=== PATIENT | female | born 1995 | race American Indian/Alaskan Native ===

== ENCOUNTER 2020-09-27 15:46 | Outpatient (CLI) | payer OTHER, SELFPAY ==
--- NOTE | ~2020-09-27 | CT_ITS ---
EXAMINATION: CT abdomen pelvis w con DATE: 09/27/2020 17:01 INDICATION: Right lower quadrant abdominal pain. TECHNIQUE: Computed tomography (CT) of the abdomen and pelvis was performed with 100 mL Omnipaque 350 intravenous contrast. Automated exposure control and iterative reconstruction technique were employe d. The dose-length product was 780.42 mGy-cm. COMPARISON: None. FINDINGS: The visualized portions of the lung bases are clear without pneumonia or pleural effusion. The heart size is normal. No pericardial effusion. The liver, gallbladder, spleen, pancreas, adrenal glands, and left kidney are normal. There is a 12 mm cyst in right kidney. There are no dilated loops of bowel. The appendix is normal. There is a small sliding hiatal hernia. There are no pathologicall y enlarged lymph nodes. There is no free intraperitoneal fluid. There is a 3.0 cm follicle in right o vary. There are no pathologically enlarged lymph nodes. There is no free intraperitoneal fluid. L4 is a limbus vertebra. IMPRESSION: 1. No specific etiology for the patient's symptoms. Reviewed, dictated and finalized at location A.
[2020-09-27 16:42] LABS: Basophils Percent Auto 0.3 % (0.2-1.2); Eosinophils Absolute Auto 0.1 K/mm3 (0-0.3); Eosinophils Percent Auto 1.2 % (0-4.4); Hematocrit 40.9 % (37.0-47.0); Hemoglobin 13.8 g/dL (12.0-15.0); Immature Granulocyte Absolute 0.09 K/mm3 (0.00-0.031); Immature Granulocyte Percent A 0.9 % (0-0.5); Lymphocytes Absolute Auto 2.15 K/mm3 (0.9-3.2); Lymphocytes Percent Auto 22.4 % (18.3-44.2); Mean Corpuscular HGB Conc 33.7 g/dl (32-36); Mean Corpuscular Hemoglobin 29.3 pg (26-34); Mean Corpuscular Volume 86.8 fl (80-100); Mean Platelet Volume 9.2 fl (7.4-10.4); Monocytes Absolute Auto 0.7 K/mm3 (0.1-0.6); Monocytes Percent Auto 6.8 % (2.6-8.5); Neutrophils Absolute Auto 6.6 K/mm3 (1.3-6.7); Neutrophils Percent Auto 68.4 % (45.5-73.1); Platelet Count Result 290 k/mm3 (150-375); Red Blood Count 4.71 M/mm3 (4.2-5.4); Red Cell Distribution Width 12.5 % (11.5-14.5); White Blood Count 9.6 K/mm3 (4.5-10.0)
[2020-09-27 16:43] LABS: Add Urine Microscopic? NO; Appearance Urine Clear (Clear); Bilirubin Urine Negative (Negative); Blood Urine Negative (Negative); Color Urine Straw (Yellow); Glucose Urine UA Negative (Negative); Ketones Urine Negative (Negative); Leukocyte Esterase Ur Negative LEU/UL (NEGATIVE); Nitrate Urine Negative (Negative); Protein Urine Negative (Negative); Urobilinogen Urine Negative mg/dL (<2.0)
[2020-09-27 16:51] LABS: Alanine Aminotransferase 16 U/L (4-35); Albumin Level 4.6 g/dL (3.5-5.1); Alkaline Phosphatase 91 U/L (38-126); Anion Gap 9 mmol/L (8-16); Aspartate Amino Transferase 27 U/L (14-36); Bilirubin,Total 0.2 mg/dL (0.2-1.3); Blood Urea Nitrogen 16 mg/dL (7-17); Calcium 9.5 mg/dL (8.4-10.2); Carbon Dioxide 25 mmol/L (22-30); Chloride 104 mmol/L (98-107); Estimated Glomerular Filt Rate > 60; Glucose 85 mg/dL (65-105); Potassium 4.1 mmol/L (3.4-5.0); Sodium 138 mmol/L (137-145)
== END 2020-09-27 15:47 | disposition home or self-care (01) ==
LOC: ANHIMG 15:48
PROVIDERS: PCP Physician Assistant; Visit Provider Physician Assistant
DX: R10.31 Right lower quadrant pain (principal)
CPT/HCPCS: 36415; 74177; 80053; 81003; 85025; 87086; Q9967

== ENCOUNTER → 2022-04-16 15:10 | Outpatient (CLI) | payer OTHER, SELFPAY ==
--- NOTE | ~2022-04-16 | CT_ITS ---
EXAMINATION: CT abdomen pelvis w con DATE: 04/16/2022 15:40 INDICATION: Right lower quadrant abdominal pain. Left lower quadrant abdominal pain. Blood in stool. TECHNIQUE: Computed tomography (CT) of the abdomen and pelvis was performed with 100 CC Omnipaque 350 intravenous contrast. Automated exposure control and iterative reconstruction technique were employe d. Exam dose: 1073.57 mGy-cm total exam DLP. COMPARISON: 09/27/2020 CT abdomen pelvis FINDINGS: The lung bases are clear. Normal heart size. No pericardial or pleural effusion. Small sliding hiatal hernia. The liver, gallbladder, bile ducts, spleen, pancreas, pancreatic duct, and adrenal glands are unremar kable. Lower pole right renal 1.4 cm cyst. The kidneys are otherwise unremarkable. No urinary tract calculus or hydroureteronephrosis. Normal caliber of the abdominal aorta. No intraperitoneal or retroperitoneal or pelvic mass lesion or adenopathy or ascites. 2 x 3 cm posterior right adnexal cyst, unchanged since 09/27/2020. 12 mm right ovarian cyst and peripherally enhancing 10 mm right ovarian cyst The uterus, ovaries and urinary bladder otherwise appear normal. Minimal sigmoid colon diverticulosis without evidence of diverticulitis. No bowel obstruction, bowel wall thickening, pneumatosis or intraperitoneal free air. Normal appendix. Small fat-containing umbilical hernia. L4 limbus vertebra, chronic. No suspicious osteolytic or osteoblastic lesions. IMPRESSION: Small sliding hiatal hernia 1.4 cm right renal cyst Chronic 2 x 3 cm posterior right adnexal cyst, stable since 09/27/2020 Right ovarian cysts Minimal sigmoid diverticulosis Reviewed, dictated and finalized at Location A. Reviewed, dictated and finalized at location B. [employer]
== END ==
PROVIDERS: PCP Physician Assistant; Visit Provider Physician Assistant
DX: R10.31 Right lower quadrant pain (principal); K44.9 Diaphragmatic hernia without obstruction or gangrene; N28.1 Cyst of kidney, acquired; N83.201 Unspecified ovarian cyst, right side
CPT/HCPCS: 74177; Q9967

== ENCOUNTER 2023-04-27 10:19 | Outpatient (CLI) | payer OTHER, SELFPAY ==
--- NOTE | ~2023-04-27 | US_ITS ---
EXAMINATION: US transvaginal DATE: 04/27/2023 10:54 INDICATION: Pelvic pain Comparison:Ultrasound dated 05/29/2017 TECHNIQUE: Multiple transabdominal and endovaginal sonographic images of the pelvis performed. FINDINGS: The uterus measures 7.3 x 4 x 3.4 cm. The endometrial complex measures 6 mm. The right ovary measures 2.1 x 1.7 x 2.1 cm and the left ovary measures 2.8 x 2.2 x 2.1 cm. There is a right ovarian cyst measuring 1.9 cm. There are small follicles in each ovary. Normal doppler signal in both ovaries. There is no free fluid in the pelvis. There are no abnormal masses seen on either side. IMPRESSION: 1. Right ovarian cyst measuring 1.9 cm. Reviewed, dictated and finalized at location A. [facility]
== END 2023-04-27 10:20 ==
PROVIDERS: PCP Nurse Practitioner; Visit Provider Nurse Practitioner
DX: R10.2 Pelvic and perineal pain (principal); N83.201 Unspecified ovarian cyst, right side
CPT/HCPCS: 76830

== ENCOUNTER 2023-06-15 09:23 | Outpatient (CLI) | payer OTHER, SELFPAY ==
--- NOTE | ~2023-06-15 | US_ITS ---
Pelvic ultrasound. Clinical History: Right ovarian cyst Technique: Realtime transvaginal scanning of the pelvis was performed. Color flow Doppler and Doppler spectral analysis were performed. Findings: The uterus is anteverted, and measures 7.3 x 3.9 x 4.6 cm. The endometrial stripe has a th ickness of 9 mm. No focal mass is identified. The right ovary measures 2.5 x 2.2 x 2.0 cm. Probable right ovarian corpus luteal cyst present. There is an additional 2.0 cm simple right paraovarian cyst. The left ovary is not visualized. No significant left ovarian or adnexal mass is seen. There is no evidence of free fluid in the cul de sac. Impression: Probable 2 cm simple right paraovarian cyst. Additional right ovarian corpus luteal cyst. Left ovary not seen. Reviewed, dictated and finalized at [facility]. Impression: Probable 2 cm simple right paraovarian cyst. Additional right ovarian corpus luteal cyst. Left ovary not seen.
== END 2023-06-15 09:24 ==
PROVIDERS: PCP Obstetrics & Gynecology Gynecology; Visit Provider Obstetrics & Gynecology Gynecology
DX: N83.201 Unspecified ovarian cyst, right side (principal)
CPT/HCPCS: 76830

== ENCOUNTER 2023-07-20 11:19 | Outpatient (CLI) | payer OTHER, SELFPAY ==
--- NOTE | ~2023-07-20 | US_ITS ---
EXAMINATION: US OB transvaginal DATE: 07/20/2023 12:07 INDICATION: Evaluate viability TECHNIQUE: Real-time transabdominal and transvaginal obstetric ultrasound. FINDINGS: Ultrasound dated 06/15/2023 The uterus measures 9.5 x 5.5 x 6.6 cm. There is an intrauterine gestational sac, with pole jayde ntified. The crown rump length measures 1.66 cm, which correlates with a estimated gestational age o f 8 weeks 0 days. heart tones are identified measuring 171 BPM. There is a corpus luteal cyst of the right ovary measuring 4.5 cm. Left ovary is not visualized. IMPRESSION: 1. SL IUP with an EGA of 8 weeks, 0 days (EDC by current ultrasound of 02/29/2024). Reviewed, dictated and finalized at location A. IMPRESSION: 1. SL IUP with an EGA of 8 weeks, 0 days (EDC by current ultrasound of 02/29/20 24).
== END 2023-07-20 11:20 ==
PROVIDERS: PCP Advanced Practice Midwife; Visit Provider Advanced Practice Midwife
DX: O36.80X0 Pregnancy with inconclusive fetal viability, not applicable or unspecified (principal); N83.201 Unspecified ovarian cyst, right side; Z3A.08 8 weeks gestation of pregnancy
CPT/HCPCS: 76817

== ENCOUNTER 2023-10-05 10:07 | Outpatient (CLI) | payer OTHER, SELFPAY ==
--- NOTE | ~2023-10-05 | US_ITS ---
EXAMINATION: US OB /maternal detail DATE: 10/05/2023 11:14 INDICATION: Anatomy scan TECHNIQUE: Real-time ultrasound of the pelvis was performed. COMPARISON: 07/20/2023. FINDINGS: There is a single living fetus in vertex presentation. The placenta is anterior, 7.5 cm from the cerv ix. heart rate is 148 beats per minute (bpm). cardiac activity and movement are no nas. The amniotic fluid index is subjectively normal. The following anatomy was identified as normal: choroid plexus, falx, cavum ventricles cisterna magna cerebellum nuchal fold upper lip 4 chamber heart, LVOT, RVOT 3 vessel cord kidneys urinary bladder stomach spine diaphragm arms/hands, legs/feet The following biometric data were obtained: Biparietal diameter (BPD): 4.5 cm; head circumference (HC): 16.39 cm; abdominal circumference (AC): 1 3.72 cm; femur length (FL): 2.89 cm. These measurements are concordant. Estimated weight is 271.60 g +/- 40.74 g, which correlates with the 48.8 percentile when 2023 is used as estimated date of delivery. As single measurements, these parameters are each equal to the following estimated gestational ages w ith ranges of +/- 2 standard deviations: BPD: 19 weeks 4 days ( 17 weeks 6 days - 21 weeks 2 days). HC: 19 weeks 1 days ( 17 weeks 5 days - 20 weeks 4 days). AC: 19 weeks 1 days ( 17 weeks 1 days - 21 weeks 1 days). FL: 18 weeks 6 days ( 17 weeks 1 days - 20 weeks 5 days). estimated gestational age based solely on measurements from this exam is 19 weeks 1 days +/- 1 weeks 2 days. IMPRESSION: 1. Single living fetus in vertex presentation. 2. 271.60 g +/- 40.74 g. 3. Normal anatomic survey. 4. RAISA by ultrasound 02/29/2024, date set by prior ultrasound done on 07/20/2023 Reviewed, dictated and finalized at location K.
== END 2023-10-05 10:08 ==
PROVIDERS: PCP Advanced Practice Midwife; Visit Provider Advanced Practice Midwife
DX: Z36.9 Encounter for antenatal screening, unspecified (principal)
CPT/HCPCS: 76805

== ENCOUNTER 2024-01-13 16:16 | Emergency (ER) | payer OTHER, SELFPAY ==
[2024-01-13 16:47] VITALS: BP 118/59; PULSE 100; RESP 20; TEMP 36.5; O2SAT 99
[2024-01-13 17:04] VITALS: BP 109/66; PULSE 100; RESP 15; O2SAT 100
[2024-01-13 17:54] VITALS: BP 100/70; PULSE 94; RESP 14; O2SAT 99
--- NOTE | 2024-01-13 17:57 | ED.SKABFB ---
HPI - Skin/Abscess/Foreign Bdy General Chief complaint: Skin/Abscess/Foreign Body Stated complaint: BOIL TO BUTTOCKS 34 WKS PREG Time Seen by Provider: 01/13/24 17:00 Source: patient Mode of arrival: ambulatory Limitations: no limitations History of Present Illness HPI narrative: Patient is a 28 y/o female who presents to the ED with concern for pilonidal cyst. Patient is currently [address] Christianson. Saw her in office today and was referred to the ED for further evaluation and drainage. Patient reports she 1st noticed an area of tenderness along her left upper medial buttock last Saturday. States it has continued to grown in size and tenderness. She was started on bactrim by her OBGYN a few days ago but denies significant improvement. She has not had any drainage. Has been taking sitz baths and using witches yumiko in the area. Denies any fevers. Denies abdominal pain or vaginal bleeding. Has never had symptoms like this before. 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 Related Data Home Medications Medication Instructions Recorded Confirmed No Home Medications 09/09/20 09/09/20 Allergies Allergy/AdvReac Type Severity Reaction Status Date / Time No Known Allergies Allergy Verified 01/13/24 17:04 Review of Systems Review of Systems: All systems reviewed & are unremarkable except as noted in HPI. All systems reviewed & are unremarkable except as noted in HPI and below PMFSH Past Medical History Medical History Anxiety Surgical History Surgical History H/O hand surgery Family History Family History Father Family history of liver disease Alcoholism Grandparent Diabetes mellitus Family history of malignant neoplasm of breast Sibling Depression Social History Social History Smoking status: Never smoker Alcohol intake: current Substance use: never Exam Narrative: GENERAL: Well appearing, BMI of 33.4, non-toxic, in no acute distress. HEAD: Normocephalic, atraumatic. RESPIRATORY: Airway patent, respirations nonlabored. CARDIOVASCULAR: Regular rate and rhythm ABDOMINAL: Soft, uterus gravid, nondistended, no tenderness. Normoactive BS. MUSCULOSKELETAL: Moves all extremities. No gross deformities. SKIN: Warm, dry, normal color. Large area of induration, inflammation to L medial superior buttocks, a few fingerbreadths inferior from top of intergluteal cleft, focal central fluctuance with small pustular head forming. Focal TTP. No active drainage. NEURO: A&O X3. Speech clear. PSYCHIATRIC: Appropriate mood and affect. Normal interaction. Course Vital Signs Vital signs: Vital Signs Temperature 97.7 F 01/13/24 16:47 Pulse Rate 100 01/13/24 16:47 Respiratory Rate 20 01/13/24 16:47 Blood Pressure 118/59 L 01/13/24 16:47 Pulse Oximetry 99 01/13/24 16:47 Oxygen Delivery Room Air 01/13/24 16:47 Temperature 97.7 F 01/13/24 16:47 Pulse Rate 93 01/13/24 19:26 Respiratory Rate 15 01/13/24 19:26 Blood Pressure 107/56 L 01/13/24 19:26 Pulse Oximetry 100 01/13/24 19:26 Oxygen Delivery Room Air 01/13/24 16:47 Procedures Abscess I/D jacob-rectal: Date of Incision: 01/13/24 Time of Incision: 18:00 Side (if applicable): left (medial superior buttock) Sedation/analgesia: none Local Anesthetic: lidocaine 1% Amount of anesthesia used (mL): 5 Technique: incised with #11 blade and probed loculations Amount of fluid expressed (mL): 10 Irrigation: Yes Packing used?: plain I&D Results: Pus and Blood Complications: other (none) MDM - Skin/Abscess/Foreign Bdy MDM Narrative Medical decision making narrative:
[2024-01-13 18:52] VITALS: BP 109/50; PULSE 92
[2024-01-13 19:26] VITALS: BP 107/56; PULSE 93; RESP 15; O2SAT 100
== END 2024-01-13 19:28 | disposition home or self-care (01) ==
PROVIDERS: Emergency Provider Physician Assistant; PCP Physician Assistant
DX: O99.713 Diseases of the skin and subcutaneous tissue complicating pregnancy, third trimester (principal); L02.31 Cutaneous abscess of buttock; Z3A.34 34 weeks gestation of pregnancy
CPT/HCPCS: 10060; 87070; 87205; 99282; 99283

== ENCOUNTER 2024-02-17 21:00 | Inpatient (IN) | payer OTHER, SELFPAY ==
--- NOTE | 2024-02-17 22:59 | WPDOBADMIT ---
Obstetrics - Admit Note Admission Note: record reviewed. No pertinent additions to the history and/or any subsequent changes in the physical findings that are not consistent with the expected course of the were found. Additions to the history and/or subsequent changes in the physical findings follow. Pt admitted to L&D with complaints of vaginal bleeding. Bleeding dark red, stable. Cervical change since SVE in office and ctx pattern reveal latent labor.
--- NOTE | 2024-02-17 23:01 | PM.OBPNLAB ---
Pain Control Date/time seen: 02/17/24 7696 Comments: Feeling lower abdominal aching/cramping and ctx q 4-6 minutes. Pelvic Exam Dilation (cm): 1 Effacement (%): 50 station: -3 Amniotic membrane status: Intact Comments: head well applied to cervix. Contractions Monitor mode: External Contraction frequency: 5 (4-6) Contraction duration: 80 Contraction pattern: Irregular Contraction phase: Contraction Contraction intensity: Mild Status Comments: FHTs 125. Moderate variability. +accelerations. Assessment and Plan Comments: CNM to bedside. Bleeding stable. Small amt dark red/brown blood with SVE. No evidence of ROM. Ctx pattern q 4-6 minutes. Likely in latent labor. Plan to observe x 4 hours and start pitocin if no cervical change. Discussed plan of care with pt. Due to amount of bleeding, plan for admission. Dr. Christianson updated.
--- NOTE | 2024-02-17 23:07 | LDADM ---
This patient, Leticia Irene, was admitted to Labor/Delivery/Recovery 106 on 02/17/24 at 21:00. Plans for labor, pain management and were discussed with patient. Patient/family oriented to hospital policies and general routines including ID bracelet, bed and alarms, visiting hours, pain management, procedures, bathroom and other care routines, personal items, smoking policy, room service/diet and guest tray routines, security routines, and visiting hours. Patient/Family are encouraged to report perceived risks to care and to ask questions if they do not understand what they are told or what they should do. See OBIX for further documentation.
[2024-02-17 23:20] VITALS: BMI 34.8
[2024-02-18] VITALS (74 sets, daily range): BP systolic 62–145; BP diastolic 30–96; PULSE 69–156; RESP 16–20; TEMP 36.2–37; O2SAT 98–100
[2024-02-18 00:33] LABS: HIV 1/2 Ab P24 Ag Result Negative (Negative)
[2024-02-18 02:50] LABS: Rapid Plasma Reagin Non-Reactive (NonReactive)
[2024-02-18] MEDS: LACTATED RINGERS 1,000 ML 125 ML IV CONT ×2 (03:38→10:41)
[2024-02-18] MEDS: OXYTOCIN 30 UNITS/NS 500 ML 30 UNITS/500 ML BAG IV CONT (03:41)
[2024-02-18] MEDS: fentaNYL CITRATE INJ (*CRX) 100 MCG/2 ML VIAL 50 MCG IV PUSH (05:22)
--- NOTE | 2024-02-18 05:46 | WPDANESEPP ---
Anes - Eval Pre Procedure Procedure: labor epidural Date/Time: 02/18/24 05:46 Surgeon: regan Preop Diagnosis: pain during labor Pre Op Diagnosis: Vaginal bleeding Patient Data Age: 28 Gender: F Height: 1.63 m Weight: 92 kg Last Vital Signs Temp 36.9 C 02/18/24 02:00 Pulse 91 02/18/24 03:37 BP 96/51 L 02/18/24 03:37 Allergies Allergy/AdvReac Type Severity Reaction Status Date / Time No Known Allergies Allergy Verified 01/25/24 12:43 Home Medications Medication Instructions Recorded Confirmed Type aspirin 81 mg tablet 81 mg PO DAILY 02/17/24 02/17/24 History vits 75-iron 28 mg-folic pkg PO 02/17/24 History acid 800 mcg-omega3 440 mg oral pack Laboratory Tests 02/17/24 23:29 RPR Non-reactive (NonReactive) HIV 1&2 Ab/P24 Ag 4thGn Negative (Negative) Patient hx anesthesia problems: none Family hx anesthesia problems: none Results Review: All pre-operative results and documents have been reviewed as part of the pre-operative evaluation. [facility] Past Medical History Medical History (Updated 02/18/24 @ 05:47 by Leonela Leal CRNA) Anxiety IUP (intrauterine ), incidental Obesity (BMI 30-39.9) PCOS (polycystic ovarian syndrome) Surgical History Surgical History H/O hand surgery Family History Family History Father Alcoholism Family history of liver disease Grandparent Diabetes mellitus Family history of malignant neoplasm of breast Prostate carcinoma Sibling Depression Social History Social History Smoking status: Never smoker Alcohol intake: current Substance use: never Do You Feel Safe in your Home?: Yes Lack of Transportation: No Lack of Food: Never True Current Housing: I Have Housing Concerned About Future Housing: No Difficulty Paying Gas/Electric Bills: No Difficulty Paying for Meds: No Currently Unemployed: No Education: High School Diploma/GED Difficulty w/ Childcare or Family Care: No Spiritual care concerns: No Exam Day of Procedure 02/18/24 05:46
[2024-02-18] MEDS: fentaNYL CITRATE INJ (*CRX) 100 MCG/2 ML VIAL IV PUSH (06:36)
--- NOTE | 2024-02-18 07:22 | PM.OBPNLAB ---
Pain Control Date/time seen: 02/18/24 07:20 Pain control: tolerating well and epidural Comments: Recent epidural placement. Feeling much relief. Had more dark red bleeding overnight with few small clots. Pelvic Exam Dilation (cm): 3 Effacement (%): 80 station: -1 Amniotic membrane status: Intact Comments: head well applied to cervix. Contractions Monitor mode: External Contraction frequency: 3 (2-5) Contraction duration: 60 (60-80) Contraction pattern: Irregular Contraction phase: Contraction Contraction intensity: Mild Status Comments: Baseline 120. Moderate variability and accelerations present. Assessment and Plan Pitocin rate (mU/min): 4 Plan: continuous present management Comments: CNM to bedside. Discussed plan of care and option for amniotomy and IUPC placement. Discussed risks, benefits, and expectations of breaking water. Patient is agreeable. Amniotomy performed and there was a moderate return of clear amniotic fluid. IUPC inserted easily through OS, clear fluid returned in catheter. Small amount dark red bloody show present. Patient tolerated procedure well. Plan to titrate pitocin as needed to achieve adequate ctx pattern. Anticipate vaginal . Dr. Christianson updated.
[2024-02-18] MEDS: ONDANSETRON INJ 4 MG/2 ML VIAL IV PUSH (07:34)
--- NOTE | 2024-02-18 11:08 | PC.NURSE ---
1105--Cardiology at bedside to perform ECHO.
--- NOTE | 2024-02-18 13:19 | PM.OBPRVD ---
OB - Vaginal Delivery Note Procedure Delivery date: 02/18/24 Induction method: Per Pitocin Protocol Delivery augmentation: Rupture of Membranes Delivery monitor: External FHT and Internal Uterine Route of delivery: Episiotomy description: None Laceration Description: Perineal - 2nd Degree Delivery repair: vicryl Specimen: Yes (placenta) Quantitative Blood Loss (ml): 140 Anesthesia type: Epidural Disposition: Floor Complications: No immediate complications Narrative: Leticia arrived from home with complaints of vaginal bleeding. she was found to be vlad every 4-6 minutes with cervical change since the office. She was observed and continued to have a small amount of dark red bleeding. The plan of care was discussed with the patient and her partner and augmentation of labor was agreed upon. Pitocin was started and she received an epidural for analgesia. She progressed quickly to complete dilation and pushed very well with contractions. She brought the head to a complete crown. With the next contraction there was delivery of the entire head. Good restitution was observed. The left hand was noted just below the infant's chin. With the next push, the remainder of the infant was delivered. He was placed on the maternal abdomen and dried and stimulated by the nursery staff. After 1 minute of life, the cord was doubly clamped and cut. Cord blood, cord gases, and cord segment were obtained. The vaginal/ perineal laceration was repaired in usual fashion. All delivery counts correct and there was excellent hemostasis. Mother and baby skin to skin in the delivery room. Baby Date of : 02/18/24 Time of : 12:53 Gestational Age by Date: 39 gender: Male Weight (pounds): 0 (weight unavailable at this time.) presentation: vertex position: Left Occiput Anterior Placenta delivery description: Spontaneous Cord Vessel Description: 3 Vessels and Delayed Cord Clamping score one minute: 8 score five minutes: 9
--- NOTE | 2024-02-18 13:23 | P.DS_ITS ---
DS: Admitting Diagnosis Discharge Date 02/20/24 Admitting Diagnosis Vaginal bleeding. Latent labor DS: Discharge Diagnosis Discharge Diagnosis (1) (normal spontaneous vaginal delivery): Code(s): O80 - Encounter for full-term uncomplicated delivery Status: Acute (2) Patient is a currently breast-feeding mother: Code(s): Z39.1 - Encounter for care and examination of lactating mother Status: Acute OB - DS: Summary Hospital Course Hospital Course: Uncomplicatred OB Procedures : Ultrasound OB Procedures Intrapartum: Spontaneous Vag Delivery OB Procedures: : None Peripartum Data Infant Delivery Method: Natural Vaginal Laceration Description: Perineal - 2nd Degree Episiotomy description: None complications: none Status at Discharge Functional status at discharge: independent ambulation Time Spent with Patient Time attestation: Total time spent providing and/or coordinating discharge services: Exam Narrative: Alert and oriented. Mood is pleasant and cooperative. Perineum with minimal edema. Fundus firm and below umbilicus. Const: General: cooperative, healthy appearing, no acute distress and alert Orientation/consciousness: patient oriented x3 Limitations: no limitations Chest: Other: Nipples with some cracking, bright pink. Resp: Effort & Inspection: normal respiratory effort and able to speak in complete sentences Cardio: Rate: regular rate GI: Inspection: normal to inspection GI Palp: Yes Soft to palpation : General: Yes bladder normal to palpation External Female Exam: other (lochia WNL) Bimanual exam- vagina & uterus: bladder normal to palpation Other: Fundus firm and below U Skin: General skin exam: normal color and no rashes or lesions noted Neuro: General: patient oriented x3 and moves all extremities Cognition (Neuro): normal cognition Speech: normal speech Sensory Exam: normal sensation Extrem: General: normal to inspection and no calf tenderness Psych: Appearance: grossly normal Mental Status: mental status grossly normal Affect: normal affect Thought process: Normal thought process present DS: Data Data Completed and Pending Labs on day of discharge: Labs from last 24 hours 02/17/24 23:29 RPR Non-reactive HIV 1&2 Ab/P24 Ag 4thGn Negative Discharge Plan Discharge Attending physician on discharge: Lindy Christianson Consulting providers: Savana Wright Discharging Clinician: Savana Wright Anticipated Discharge Date/Time: 02/20/24 10:00 Patient Disposition: Home, Self-Care Activity: may shower and pelvic rest Diet: as tolerated and regular Wound Care Instructions: follow printed instructions Discharge Instructions: Continue taking your vitamin and any other supplements as previously directed (Examples: Iron, Vitamin D). You may take Tylenol 1000mg over the counter every 6 hours as needed for pain. Do not exceed 4000mg of Tylenol daily. You may continue using tucks pads and dermoplast spray if needed for a few more days. Depression * Notify provider for signs or symptoms. These may include- * Feelings: Feeling anxious, angry, hopeless, guilt, or loss of interest/pleasure in activities you normally enjoy. Mood swings or panic attacks. * General: Extreme fatigue, loss of your appetite, feeling restless. Crying excessively, irritability, insomnia * Psychological: Lack of concentration, depression or fear, unwanted thoughts * Weight: Significant gain or loss * Safety: Thoughts of harming yourself or your baby. Patient Instructions: Antibiotic Form Stand Alone Forms: General Discharge Information Follow-up/Referrals: Savana Wright CNM [Certified Nurse Pamphlet Distributor] - ( 6 weeks ) Discharge Medications: New ibuprofen 600 mg tablet 600 mg PO Q6H PRN (Reason: pain) Qty: 30 0RF Continued Daily [id number] mg-mcg-mg Combo Pack 1 pkg PO DAILY Discontinued Adult Low Dose Aspirin 81 mg Tablet 81 mg PO DAILY Date of admission: 02/17/24 21:00 Primary Care Provider: ManuelSheri Admitting Provider: Lindy Christianson Attending physician on admission: Lindy Christianson Condition: Stable
[2024-02-18] MEDS: OXYTOCIN 30 UNITS/NS 500 ML 30 UNITS/500 ML BAG 125 UNITS IV CONT (13:45)
[2024-02-18] MEDS: BENZOCAINE 20% AER SPR (*SP) 56 GM CAN 1 SPRAY TOPICAL (15:42)
[2024-02-18] MEDS: WITCH HAZEL 40 PADS 1 PAD TOPICAL (15:43)
--- NOTE | 2024-02-18 16:01 | OBPPTRN ---
Patient transferred to post room #279 via wheelchair. Support person present. Oriented to unit, room, information board, rooming in, admission packet and security measures. Patient verbalizes understanding.
--- NOTE | 2024-02-18 17:00 | PC.NURSE ---
Primary RN requested assistance with latching . Mom was attempting to awaken infant and he seemed eager and was giving feeding cues. We placed him in football hold on the right breast. He tends to thrust his tongue and doesn't easily maintain a deep latch. Discussed with mom that he appears to have good tongue movement (no apparent ties) but may be humping his tongue or thrusting and pushing the nipple out of his mouth. We discussed the need to maintain a deep latch for mother's comfort. Mom has concerns about her milk production and we reviewed signs that baby is getting enough. Baby nursed for a good three minutes or so and then released the breast and feel asleep. He did not demonstrate any further feeding cues so mom was encouraged to allow him to rest and offer the breast for any feeding cues she sees or in 2-3 hours by waking him: undressing, changing diaper, and skin to skin. Mom agrees and verbalized understanding. Reported to primary RN.
[2024-02-18] MEDS: ACETAMINOPHEN 325 MG TABLET 650 MG PO (22:36)
[2024-02-18] MEDS: IBUPROFEN 600 MG TABLET PO (22:36)
[2024-02-19 00:30] VITALS: BP 111/62; PULSE 89; RESP 16; TEMP 37.2; O2SAT 100
[2024-02-19 04:22] LABS: Hemoglobin 9.7 g/dL (12.0-15.0)
[2024-02-19] MEDS: IBUPROFEN 600 MG TABLET PO (04:32)
[2024-02-19] MEDS: ACETAMINOPHEN 325 MG TABLET 650 MG PO (04:32)
[2024-02-19 07:30] VITALS: BP 119/50; PULSE 77; RESP 18; TEMP 36.9; O2SAT 100
--- NOTE | 2024-02-19 08:24 | PM.OBPNVD ---
OB - PN: Subj Subjective Date/time seen: 02/19/24 08:24 Interval history: Post Day 1 from . Doing well. Urinating without difficulty. Denies passing any large clots. Denies dizziness with ambulating. Tolerating po food and fluids. Bonding with infant. Patient comments: pain well controlled baby status: doing well and nursing well feeding status: exclusively breast feeding OB - PN: Obj Data Labs 02/19/24 04:13 Labs: Laboratory Results - last 24 hr 02/19/24 04:13 Hgb 9.7 L Hct 28.0 L OB - PN A/P Assessment and Plan (1) (normal spontaneous vaginal delivery): Code(s): O80 - Encounter for full-term uncomplicated delivery Status: Acute (2) Patient is a currently breast-feeding mother: Code(s): Z39.1 - Encounter for care and examination of lactating mother Status: Acute Plan day: 1 Plan: routine care Time Spent With Patient Time: Total time spent is greater than 50% in coordination of care (as documented) at patient's floor/unit and/or counseling patient: Review of Systems Review of Systems: All systems reviewed & are unremarkable except as noted in HPI and below Exam Narrative: Alert and oriented. Mood is pleasant and cooperative. Perineum with minimal edema. Fundus firm and below umbilicus. Const: General: cooperative, healthy appearing, no acute distress and alert Orientation/consciousness: patient oriented x3 Limitations: no limitations Resp: Effort & Inspection: normal respiratory effort and able to speak in complete sentences Cardio: Rate: regular rate GI: Inspection: normal to inspection GI Palp: Yes Soft to palpation : General: Yes bladder normal to palpation External Female Exam: other (lochia WNL) Bimanual exam- vagina & uterus: bladder normal to palpation Other: Fundus firm and below U Skin: General skin exam: normal color and no rashes or lesions noted Neuro: General: patient oriented x3 and moves all extremities Cognition (Neuro): normal cognition Speech: normal speech Sensory Exam: normal sensation Extrem: General: normal to inspection and no calf tenderness Psych: Appearance: grossly normal Mental Status: mental status grossly normal Affect: normal affect Thought process: Normal thought process present
[2024-02-19] MEDS: DOCUSATE SODIUM 100 MG CAPSULE PO ×2 (09:50→17:13)
[2024-02-19] MEDS: MULTIVIT/MIN/PREN/FOL AC/IRON TABLET 1 TAB PO (09:50)
[2024-02-19] MEDS: POLYSACCHARIDE IRON COMPLEX 150 MG CAPSULE PO ×2 (09:50→16:58)
--- NOTE | 2024-02-19 09:50 | PC.NURSE ---
0915- Primary RN requested assistance with waking baby to feed. He was just circumcised this morning. Mom was trying skin to skin but baby was still sleeping. She has been resting the right nipple for the last few feedings due to soreness. She has a Spectra breast pump and a Haakaa. We applied the Haakaa to the right breast while we attempted on the left side to provide some passive stimulation. We tried for about 5 minutes and baby would not open his mouth despite many attempts. Encouraged mom to keep him skin to skin for about 15 minutes and we will try again. 0950- Mom was still holding baby skin to skin with no success in waking him or observing feeding cues. We placed him in the crib to see if he would stir and he did become more active, but when we placed him up to the breast again he was not willing to open his mouth or attempt to feed. We tried for several minutes without success. Encouraged mom to leave him loosely swaddled in the crib while she eats breakfast and then we will try again in half an hour. We reviewed feeding cues and mom will offer the breast at the first sign of cues. Reported to primary RN.
--- NOTE | 2024-02-19 11:25 | PC.NURSE ---
Transport team from [facility] in the room talking to patient and FOB, mother got to see and touch baby and ask questions.
--- NOTE | 2024-02-19 11:35 | PC.NURSE ---
1055- Attempted to latch baby to the breast without success. He is sleepy and will not open his mouth despite multiple attempts. Mom has her Spectra breast pump so we set it up with the 24mm flanges. Since baby hasn't fed in 6 hours we will pump and see if we get something to give baby. Instructions given on cleaning, care, usage, that there should be no pain, pumping schedule for milk production, collection, and storage of human milk. Patient was assessed for correct placement, flange size, to pump for comfort and nipple stretching/stimulation for adequate milk production every 3 hours (8 times in 24 hours).?Mother voiced understanding of the education shared along with mom/baby guide and her user manual. Reported to the Primary RN. 1135- Mom call out after pumping and had a few drops that we place on a gloved finger and put in baby's mouth. The primary RN would like baby to have some formula supplementation and mom agrees. Mom is concerned about feeding from a bottle and how that will affect the latch. Offered to feed baby via syringe and she agrees. We fed him 13ml and he took it very well. After the first syringe full he opened his eyes and began rooting so we did try to latch to the breast and he gave a few good sucks. He then released the breast and didn't open again so we proceeded to give the rest of the supplement while he was being held by mom. Encouraged mom to continue to watch for early feeding cues and to put him to breast any time he seems ready. We discussed cluster feeding and that parents should try to rest and nap today to prepare for baby to 'catch up' on feedings tonight. Mom agrees to call out for any further needs or questions. Reported to primary RN.
[2024-02-19 13:08] VITALS: BP 130/54; PULSE 97; RESP 16; TEMP 36.2; O2SAT 99
--- NOTE | 2024-02-19 13:39 | WPDANLDPN2 ---
Anes-Prog Note L&D Date/Time: 02/19/24 13:39 Comfortable throughout: labor and delivery Neuraxial method: epidural Epidural/Spinal procedure site: clean & non-tender Neuro status: Neuro function grossly intact. Cardiovascular status: normal Respiratory status: normal Airway patency: baseline Mental status: baseline Post-Op hydration status: normal Vital Signs: Last Vital Signs Temp 36.2 C L 02/19/24 13:08 Pulse 97 02/19/24 13:08 Resp 16 02/19/24 13:08 BP 130/54 L 02/19/24 13:08 Pulse Ox 99 02/19/24 13:08 O2 Del Method Room Air 02/19/24 08:20 Pain score (VAS): 0/10 I/O: Intake & Output 02/18/24 02/19/24 02/19/24 23:59 07:59 15:59 Intake Total 200 Output Total 100 Balance 100 Post-procedural complaints: none Patient feedback: Patient satisfied with anesthetic care.
--- NOTE | 2024-02-19 16:00 | PC.NURSE ---
In patient room to discuss options regarding . The primary RN in training suggested a nipple shield. Educated mother on the possible risks and benefits of a shield as well as tongue training with a pacifier or clean finger. We talked about how a shield can create a firm surface for baby to latch to easily and how baby may struggle to latch without the shield when it is removed, and that the shield can sometimes cause rubbing and friction on the nipple which could make feeding painful. Because baby was able to latch previously without the shield there isn't cause to believe he won't be able to latch and feed without the shield now. There was also some concern from parents about baby's stuffy nose and how that can affect feedings. Primary RN evaluated him and reassured parents his assessment is WNL. Mom is aware of the options available to her and has enough knowledge to make an educated decision about what will best suit her and baby's needs. We will attempt again with sugar water or formula to help entice baby if needed. Reported to primary RN.
--- NOTE | 2024-02-19 17:15 | PC.NURSE ---
Went to patient room to see if baby was ready to feed. Primary RN was there attempting to latch baby. He was eager and giving a wide open mouth, but he was not able to maintain a latch. With a gloved finger, his suck was assessed to be strong, with a tendency to hold the rear part of his tongue in a hump. We tried to relatch in football hold because it is mom's preferred feeding position. After several attempts where baby would latch and push the nipple out, we moved to a modified cross cradle position. After a few tries, mom latched baby independently. She does complain of some tenderness, infants lips where checked for flanging and he had a wide angle that appeared to be appropriate. He nursed consistently for about 10 minutes before releasing the breast on his own. Encouraged mother to try to burp him and offer the right breast if desired. Mother was given a Book and Outpatient Resources. Encouraged mom to continue to call out to ask her night nurse for help if needed and to work with the team tomorrow before discharge to ensure she is comfortable going home . Mom agrees and is feeling encouraged that baby has latched and fed again. She is aware that baby may cluster feed overnight and that is a normal behavior. Reported to primary RN.
[2024-02-19 19:45] VITALS: BP 117/70; PULSE 91; RESP 12; TEMP 36.8; O2SAT 99
--- NOTE | 2024-02-20 07:56 | PM.OBPNVD ---
OB - PN: Subj Subjective Date/time seen: 02/20/24 07:56 Interval history: Post Day 2 from . Doing very well. Still urinating without difficulty. Denies passing any large clots. Denies dizziness with ambulating. Bonding with . difficulties- has sore, bleeding nipples. Working with . Patient comments: pain well controlled Gordon baby status: nursing well (pain, sore nipples.) feeding status: exclusively breast feeding (pumping also) OB - PN: Obj Data Labs 02/19/24 04:13 OB - PN A/P Assessment and Plan (1) (normal spontaneous vaginal delivery): Code(s): O80 - Encounter for full-term uncomplicated delivery Status: Acute (2) Patient is a currently breast-feeding mother: Code(s): Z39.1 - Encounter for care and examination of lactating mother Status: Acute Plan day: 2 Plan: discharge home Time Spent With Patient Time: Total time spent is greater than 50% in coordination of care (as documented) at patient's floor/unit and/or counseling patient: Review of Systems Review of Systems: All systems reviewed & are unremarkable except as noted in HPI and below Exam Narrative: Alert and oriented. Mood is pleasant and cooperative. Perineum with minimal edema. Fundus firm and below umbilicus. Const: General: cooperative, healthy appearing, no acute distress and alert Orientation/consciousness: patient oriented x3 Limitations: no limitations Chest: Other: Nipples with some cracking, bright pink. Resp: Effort & Inspection: normal respiratory effort and able to speak in complete sentences Cardio: Rate: regular rate GI: Inspection: normal to inspection GI Palp: Yes Soft to palpation : General: Yes bladder normal to palpation External Female Exam: other (lochia WNL) Bimanual exam- vagina & uterus: bladder normal to palpation Other: Fundus firm and below U Skin: General skin exam: normal color and no rashes or lesions noted Neuro: General: patient oriented x3 and moves all extremities Cognition (Neuro): normal cognition Speech: normal speech Sensory Exam: normal sensation Extrem: General: normal to inspection and no calf tenderness Psych: Appearance: grossly normal Mental Status: mental status grossly normal Affect: normal affect Thought process: Normal thought process present
[2024-02-20 08:10] VITALS: BP 124/80; PULSE 73; RESP 16; TEMP 37.4; O2SAT 99
[2024-02-20] MEDS: MULTIVIT/MIN/PREN/FOL AC/IRON TABLET 1 TAB PO (08:46)
[2024-02-20] MEDS: DOCUSATE SODIUM 100 MG CAPSULE PO (08:46)
[2024-02-20] MEDS: POLYSACCHARIDE IRON COMPLEX 150 MG CAPSULE PO (08:46)
[2024-02-20] MEDS: INFLUENZA TRIVALENT VACCINE 45 MCG/0.5 ML SYRINGE IM (08:47)
--- NOTE | 2024-02-20 15:24 | PC.NURSE ---
Patient instructed on viewing the discharge video Mother & Baby Care, The First Two Weeks . Patient was given the opportunity and encouraged to ask questions. Patient verbalized understanding of information shared and has been given the mother/baby guide for home reference.
--- NOTE | 2024-02-20 16:16 | PC.NURSE ---
1545. Went in to patients room per her request. She had a couple of questions about breast milk supply. We discussed how milk production works, and the way the body reponds to infants time at the breast. We reviewed risk factors for low milk prodction and what to watch for. We also discussed and reviewed infants feeding plan, appropriate wt loss and wt gain in infants & how to schdedule and make an outpatient appointment. She has a few questions regarding her spectra pump from home and plans to call again later for help setting up and use before she goes home. Reported to the primary RN.
--- NOTE | 2024-02-20 17:05 | PC.NURSE ---
[id number] Introductions were made, then consulted with patient to assess needs related to . Primary RN had taken baby to the nursery to check a glucose, as it had been over 6 hours since the baby had fed, glucose was 50 and baby will need to be supplemented after this . Mother then led the conversation with her?plans to feed?her infant, she plans on only , and the?experience so far. Encouraged understanding of the benefits of skin to skin (demonstrating unwrapping infant and placing upright on her chest), stimulating with massage touch, changing positions to encourage wakefulness, how to watch for early feeding cues, responsive feeding, feeding on demand (aiming for 8-12 times in 24 hours, about every 2-3 hours), milk production, building/maintaining a milk supply, duration of feeding, signs of adequate intake/output and how to record on the feeding sheet. Mother works well with her infant with encouragement and education. Reviewed positioning and ear, shoulder, hip alignment, supporting the breast to facilitate a deep latch, asymmetrical latch (off-center), leading with the chin with a big, open, wide gape and body close to mother. Infant latched optimally to the [left] breast in [cross cradle] position @ 0915 and breastfed for 20 mins. Education given to the mother of how to visualize the suckling (with good rocking jaw motion), swallows (dropping of the lower jaw) and how to listen for drinking at the breast (the ka sound). RN and parents heard several swallows and mother reports less pain with latching than she had experienced before. Infant was [able] to maintain latch with optimal positioning. Reviewed comfort measures of healing with a warm, wet washcloth to rinse breast, then leave open to air-dry, good handwashing when or touching the breast/nipples to prevent infection, mother has also been given cooling gel pads for comfort/healing. Mother voiced understanding of skin to skin, stimulating with massage touch, responsive feedings, hand expressed colostrum, talking to to encourage if it has been 2 -2.5 hours since the start of the last , to call if does not latch, or if there is discomfort with . Resources used for education were facilitated with the [visual educational handouts/ tool/mom and baby guide], Inpatient/outpatient resources provided with business card, feeding sheet, name written on the communication board, and the mom/baby guide. Parents voiced understanding of information, demonstrated learning and will call if there is a request for assistance. Reported to the Primary RN. [id number] Mom called out for assistance with latch, RN reviewed positioning and alignment, supporting breast, off-centered (asymmetrical latch) and leading with the chin with big, open, wide gape. latched optimally to the [right] breast in [cross cradle] position without any pain. The was [able] to maintain latch without discomfort to mother. Nipple care reviewed with optimal latch, good positioning and using clean hands when touching her breast. Reported to the Primary RN.
[2024-02-22 11:35] VITALS: BP 114/71; PULSE 81; RESP 17; TEMP 36.8; O2SAT 100
== END 2024-02-20 17:52 | disposition home or self-care (01) | DRG 807 ==
LOC: ANHLDR 02-18 13:26 → ANHOB2 02-18 16:06
PROVIDERS: Advanced Practice Midwife; Admitting Provider Obstetrics & Gynecology Gynecology; PCP Physician Assistant; Visit Provider Obstetrics & Gynecology Gynecology
DX: O32.6XX0 Maternal care for compound presentation, not applicable or unspecified (principal); Z37.0 Single live birth; O43.893 Other placental disorders, third trimester; O67.8 Other intrapartum hemorrhage; O70.1 Second degree perineal laceration during delivery; Z3A.39 39 weeks gestation of pregnancy; Z23 Encounter for immunization
CPT/HCPCS: 36415; 85014; 85018; 85025; 85384; 85610; 85730; 86592; 86703; 86850; 86900; 86901; 88307; 90471; 90656; A9270; G0008; G0432; J2405; J2590; J2795; J3010; J7120